=== PATIENT | female | born 1995 | race Caucasian/White ===

== ENCOUNTER 2017-05-10 16:30 | Emergency (ER) | payer SELFPAY ==
[~2017-05-10] VITALS: Ht 177.8 cm; Wt 73.0 kg
[2017-05-10 16:33] VITALS: BP 123/70
[2017-05-10] MEDS ORDERED: CITA10TA16 PO (16:37)
[2017-05-10] MEDS ORDERED: MONT4TAB8 PO (16:37)
== END 2017-05-10 19:15 | disposition left against medical advice (07) ==
LOC: ER 18:55
DX: R05 Cough (principal); Z53.21 Procedure and treatment not carried out due to patient leaving prior to being seen by health care provider
CPT/HCPCS: 93005